=== PATIENT | female | born 1995 | race Caucasian/White ===

== ENCOUNTER 2017-06-08 21:38 | Inpatient (IN) ==
[2017-06-08] MEDS ORDERED: MAGNESIUM SULF RIDER 4 GM in PREMIX 1 EACH IV ONE (21:40)
[2017-06-08] MEDS ORDERED: LORazepam 2 MG/1 ML VIAL IV ONE (21:40)
[2017-06-08] MEDS ORDERED: MAGNESIUM SULF DRIP 40 GM/1,000 ML ML IV ONE (21:41)
[2017-06-08] MEDS: MAGNESIUM SULF DRIP 40 GM/1,000 ML ML IV SCH (21:50)
[2017-06-08] MEDS: LACTATED RINGERS 1,000 ML IV SCH (21:55)
[2017-06-08] MEDS ORDERED: BUTORPHANOL 1 MG/ML VIAL IV PRN (22:07)
[2017-06-08] MEDS ORDERED: LACTATED RINGERS 1,000 ML IV SCH (22:30)
[2017-06-08 22:53] LABS: Basophils # 0.1 10*3/uL (0.0-0.2); Basophils % 0.3 % (0.0-0.8); Eosinophils # 0.1 10*3/uL (0.0-0.87); Eosinophils % 0.5 % (0.00-10.9); Hematocrit 42.9 VOL% (35.7-47.0); Hemoglobin 14.6 GM/DL (12.0-16.0); Immature Granulocytes % 4.7 %; Lymphocytes # 4.3 10*3/uL (1.4-4.0); Lymphocytes % 22.3 % (21.3-54.2); Mean Corpuscular Hemoglobin 30 PG (27-34); Mean Corpuscular Volume 88.8 FL (87-102); Mean Platelet Volume 12.8 FL (9.6-12.0); Monocytes # 1.2 10*3/uL (0.11-0.8); Monocytes % 6.2 % (1.7-12.7); NRBC # 0.02 10*3/uL; Neutrophils # 12.7 10*3/uL (1.4-7.4); Platelet Count 140 T/CUMM (130-400); Red Blood Count 4.83 MC/CUMM (3.8-5.5); Red Cell Distribution Width 13.3 % (9.3-17.3); White Blood Count 19.2 T/CUMM (4-12)
[2017-06-08 23:11] LABS: Alanine Aminotransferase 18 U/L (13-56); Albumin 2.5 G/DL (3.4-5.0); Alkaline Phosphatase 108 U/L (45-117); Aspartate Amino Transferase 20 U/L (0-37); Bilirubin,Direct < 0.100 MG/DL (0.0-0.20); Bilirubin,Total < 0.39 MG/DL (0.2-1.0); Blood Urea Nitrogen 12 MG/DL (7-18); Calcium 9.4 MG/DL (8.5-10.1); Glucose 101 MG/DL (74-106); Osmolality,Calculated 280.3 MOS/KG (273-304); Potassium 3.3 MMOL/L (3.5-5.1); Sodium 141 MMOL/L (136-145)
[2017-06-08 23:12] LABS: INR 0.9; PT Patient Result 9.2 SECS; Partial Thromboplastin Time 24.7 SECS (0-40)
[2017-06-08] MEDS: BETAMETH SODIUM PHOS/ACETATE 30 MG/5 ML VIAL IM SCH (23:26)
[2017-06-08] MEDS ORDERED: LORazepam 2 MG/1 ML VIAL IV PRN (23:58)
[2017-06-09 00:32] LABS: Apearance,Urine CLOUDY (Clear); Bacteria,Urine Moderate /HPF (Few); Bilirubin,Urine Negative (Negative); Blood, Urine Small mg/dL (Negative); Glucose,Urine (UA) Negative (Negative); Granular Casts,Urine 9 /LPF (0-1); Hyaline Casts,Urine 3 /LPF (0-3); Ketones,Urine Negative (Negative); Mucus,Urine Occasional /LPF (Occasional); Nitrite,Urine Negative (Negative); Protein,Urine >=500 MG/DL; Squamous Epithelial Cell,Urine Occasional /HPF (0-10); Urine Color Yellow (Yellow); Urine Specific Gravity 1.018 (1.001-1.035); Urine Urobilinogen < 2.0 EU/DL (0.2-1.0); WBC,Urine 5 /HPF (0-6)
[2017-06-09] MEDS: ALUMINUM/MAGNES/SIMETH MAX STR 30 ML UDCUP PO PRN ×2 (00:36→22:31)
[2017-06-09] MEDS ORDERED: ACETAMINOPHEN 500 MG TABLET PO PRN (00:39)
[2017-06-09 02:11] LABS: Eosinophils 1 % (0-10); Lymphocytes 22 % (20-55); Myelocytes 2 %; Segmented Neutrophils 69 % (50-85)
[2017-06-09 02:14] LABS: Platelet Estimate Adequate
[2017-06-09 02:15] LABS: Total Cells Counted 100
[2017-06-09] MEDS: LACTATED RINGERS 1,000 ML IV SCH ×3 (02:33→21:09)
[2017-06-09] MEDS: MAGNESIUM SULF DRIP 40 GM/1,000 ML ML IV SCH ×2 (11:43→23:46)
[2017-06-09] MEDS: BETAMETH SODIUM PHOS/ACETATE 30 MG/5 ML VIAL IM SCH ×2 (16:33→23:44)
[2017-06-09] MEDS: ONDANSETRON 4 MG/2 ML VIAL IV PRN (22:31)
[2017-06-10] MEDS: MAGNESIUM SULF DRIP 40 GM/1,000 ML ML IV SCH (03:02)
[2017-06-10 09:29] LABS: Basophils # 0.1 10*3/uL (0.0-0.2); Basophils % 0.2 % (0.0-0.8); Hematocrit 39.7 VOL% (35.7-47.0); Hemoglobin 13.5 GM/DL (12.0-16.0); Immature Granulocytes % 1.9 %; Immature Granulocytes Absolute 0.47 #; Lymphocytes # 2.1 10*3/uL (1.4-4.0); Lymphocytes % 8.6 % (21.3-54.2); Mean Corpuscular Hemoglobin 31 PG (27-34); Mean Corpuscular Volume 89.8 FL (87-102); Mean Platelet Volume 11.7 FL (9.6-12.0); Monocytes % 4.3 % (1.7-12.7); Neutrophils # 20.5 10*3/uL (1.4-7.4); Platelet Count 154 T/CUMM (130-400); Red Blood Count 4.42 MC/CUMM (3.8-5.5); Red Cell Distribution Width 13.7 % (9.3-17.3); White Blood Count 24.1 T/CUMM (4-12)
[2017-06-10] MEDS ORDERED: OXYTOCIN/LR 20 UNIT/1,000 ML BAG IV SCH (09:30)
[2017-06-10] MEDS ORDERED: AMPICILLIN INJ 2,000 MG in SODIUM CHLORIDE 0.9% 100 ML IV ONE (09:30)
[2017-06-10 09:39] LABS: INR 0.9; PT Patient Result 9.1 SECS; Partial Thromboplastin Time 24.8 SECS (0-40)
[2017-06-10 09:52] LABS: Band Neutrophils 3 % (0-10); Hypochromasia 1+; Lymphocytes 8 % (20-55); Platelet Estimate Adequate; Segmented Neutrophils 86 % (50-85); Total Cells Counted 100
[2017-06-10 10:05] LABS: Alanine Aminotransferase 19 U/L (13-56); Albumin 2.4 G/DL (3.4-5.0); Alkaline Phosphatase 95 U/L (45-117); Aspartate Amino Transferase 23 U/L (0-37); Bilirubin,Total < 0.39 MG/DL (0.2-1.0); Blood Urea Nitrogen 12 MG/DL (7-18); Calcium 6.2 MG/DL (8.5-10.1); Glucose 109 MG/DL (74-106); Sodium 136 MMOL/L (136-145); Total Protein 5.7 G/DL (6.4-8.3); Uric Acid 8.8 MG/DL (2.6-6.0)
[2017-06-10] MEDS ORDERED: BUTORPHANOL 2 MG/ML VIAL IV PRN (12:32)
[2017-06-10] MEDS: ONDANSETRON 4 MG/2 ML VIAL IV PRN (12:41)
[2017-06-10] MEDS ORDERED: AMPICILLIN INJ 1,000 MG in SODIUM CHLORIDE 0.9% 100 ML IV SCH (13:30)
[2017-06-10] MEDS ORDERED: LACTATED RINGERS 1,000 ML IV SCH ×2 (14:00)
[2017-06-10] MEDS ORDERED: PROMETHAZINE 25 MG/1 ML VIAL IM ONE (14:00)
[2017-06-10] MEDS ORDERED: diphenhydrAMINE 50 MG/1 ML VIAL IV PRN ×2 (14:00)
[2017-06-10] MEDS ORDERED: CITRIC ACID/SODIUM CITRATE 30 ML UDCUP PO ONE (14:00)
[2017-06-10] MEDS ORDERED: fentaNYL 2 MCG/ROPIV 0.2% EPID 150 ML EPIDURAL SCH (14:00)
[2017-06-10] MEDS ORDERED: ePHEDrine 50 MG/ML AMP IV PRN (14:00)
[2017-06-10] MEDS ORDERED: hydrOXYzine HCL 25 MG/1 ML VIAL IM PRN (14:00)
[2017-06-10] MEDS ORDERED: FAMOTIDINE 20 MG/2 ML VIAL IV ONE (14:00)
[2017-06-10] MEDS ORDERED: ONDANSETRON 4 MG/2 ML VIAL IV ONE (14:00)
[2017-06-10] MEDS: LACTATED RINGERS 1,000 ML IV SCH (14:14)
[2017-06-10] MEDS ORDERED: HYDROCORTISONE 2.5% RECTAL CREAM 30 GM TUBE TOP PRN (16:37)
[2017-06-10] MEDS ORDERED: RHO(D) IMMUNE GLOBULIN 300 MCG SYRINGE IM ONE (16:37)
[2017-06-10] MEDS ORDERED: BENZOCAINE 20%/MENTHOL 0.5% SPRAY 56 GM CAN TOP PRN (16:37)
[2017-06-10] MEDS ORDERED: ONDANSETRON 4 MG/2 ML VIAL IV PRN (16:37)
[2017-06-10] MEDS ORDERED: BISACODYL 10 MG SUPP RECTAL PRN (16:37)
[2017-06-10] MEDS ORDERED: LANOLIN 50% CREAM 0.3 OZ TUBE TOP PRN (16:37)
[2017-06-10] MEDS ORDERED: DIPH/TET/ACEL PERT BOOSTER VACCINE 0.5 ML VIAL IM ONE (16:37)
[2017-06-10] MEDS ORDERED: WITCH HAZEL PADS 100/JAR TOP PRN (16:37)
[2017-06-10] MEDS ORDERED: MEASLES/MUMPS/RUBELLA VACCINE 0.5 ML VIAL SUBCUT ONE (16:37)
[2017-06-10] MEDS ORDERED: IBUPROFEN 800 MG TABLET PO PRN (16:37)
[2017-06-10] MEDS ORDERED: OXYTOCIN/LR 20 UNIT/1,000 ML BAG IV ONE (20:11)
[2017-06-10] MEDS: DOCUSATE SODIUM 100 MG CAPSULE PO SCH (22:53)
[2017-06-11 03:40] LABS: Basophils # 0.1 10*3/uL (0.0-0.2); Basophils % 0.2 % (0.0-0.8); Hematocrit 37.8 VOL% (35.7-47.0); Hemoglobin 12.9 GM/DL (12.0-16.0); Immature Granulocytes % 2.6 %; Immature Granulocytes Absolute 0.73 #; Lymphocytes # 2.1 10*3/uL (1.4-4.0); Lymphocytes % 7.7 % (21.3-54.2); Mean Corpuscular HGB Conc 34.1 GM/DL (32-36); Mean Corpuscular Hemoglobin 31 PG (27-34); Mean Corpuscular Volume 90.4 FL (87-102); Mean Platelet Volume 11.9 FL (9.6-12.0); Monocytes # 1.3 10*3/uL (0.11-0.8); Monocytes % 4.8 % (1.7-12.7); NRBC # 0.02 10*3/uL; Neutrophils # 23.4 10*3/uL (1.4-7.4); Neutrophils % 84.7 % (38.7-73.9); Platelet Count 140 T/CUMM (130-400); Red Blood Count 4.18 MC/CUMM (3.8-5.5); Red Cell Distribution Width 13.7 % (9.3-17.3); White Blood Count 27.7 T/CUMM (4-12)
[2017-06-11 05:15] LABS: Band Neutrophils 2 % (0-10); Hypochromasia 1+; Lymphocytes 10 % (20-55); Microcytosis 1+; Platelet Estimate Adequate; Segmented Neutrophils 86 % (50-85); Total Cells Counted 100
[2017-06-11] MEDS: MAGNESIUM SULF DRIP 40 GM/1,000 ML ML IV SCH (09:53)
[2017-06-11] MEDS: DOCUSATE SODIUM 100 MG CAPSULE PO SCH ×2 (09:58→21:48)
[2017-06-11] MEDS ORDERED: FUROSEMIDE 40 MG TABLET PO ONE (13:06)
[2017-06-12 09:11] LABS: Basophils % 0.2 % (0.0-0.8); Eosinophils # 0.1 10*3/uL (0.0-0.87); Eosinophils % 0.3 % (0.00-10.9); Hemoglobin 11.9 GM/DL (12.0-16.0); Immature Granulocytes % 2.4 %; Lymphocytes # 3.8 10*3/uL (1.4-4.0); Mean Corpuscular Hemoglobin 31 PG (27-34); Mean Corpuscular Volume 91.1 FL (87-102); Mean Platelet Volume 11.1 FL (9.6-12.0); Monocytes # 1.1 10*3/uL (0.11-0.8); Monocytes % 6.7 % (1.7-12.7); NRBC # 0.02 10*3/uL; Neutrophils % 67.4 % (38.7-73.9); Platelet Count 130 T/CUMM (130-400); Red Blood Count 3.84 MC/CUMM (3.8-5.5); Red Cell Distribution Width 14.2 % (9.3-17.3); White Blood Count 16.4 T/CUMM (4-12)
[2017-06-12] MEDS: DOCUSATE SODIUM 100 MG CAPSULE PO SCH (09:21)
[2017-06-12 09:50] LABS: Alanine Aminotransferase 28 U/L (13-56); Albumin 2.3 G/DL (3.4-5.0); Alkaline Phosphatase 70 U/L (45-117); Aspartate Amino Transferase 24 U/L (0-37); Bilirubin,Total < 0.39 MG/DL (0.2-1.0); Blood Urea Nitrogen 10 MG/DL (7-18); Calcium 6.6 MG/DL (8.5-10.1); Glucose 102 MG/DL (74-106); Potassium 3.7 MMOL/L (3.5-5.1); Sodium 143 MMOL/L (136-145); Total Protein 5.3 G/DL (6.4-8.3)
[2017-06-12 13:41] VITALS: BP 125/71
== END 2017-06-12 14:45 | disposition home or self-care (01) | DRG 560 ==
LOC: N.LDOUT 21:38 → N.LD 21:41
PROVIDERS: ADMIT Obstetrics & Gynecology; ATTEND Obstetrics & Gynecology